=== PATIENT | male | born 1990 | race Caucasian/White ===

== ENCOUNTER 2016-11-19 21:27 | Emergency (ER) | payer BC | END 2016-11-19 23:00 | disposition home or self-care (01) | LOC: ER1 21:27 | DX: T65.891A Toxic effect of other specified substances, accidental (unintentional), initial encounter (principal); T23.661A Corrosion of second degree back of right hand, initial encounter; Z88.2 Allergy status to sulfonamides; Y92.009 Unspecified place in unspecified non-institutional (private) residence as the place of occurrence of the external cause | CPT/HCPCS: 99283 ==